=== PATIENT | female | born 1985 | race Caucasian/White ===

== ENCOUNTER 2021-01-28 17:39 | Emergency (ER) | payer MEDICAID, SELFPAY ==
[2021-01-28 17:49] VITALS: BP 147/93; PULSE 93; RESP 18; TEMP 37; BMI 38.9
--- NOTE | 2021-01-28 17:53 | PC.NURSE ---
pt is able to contract for safety to wait in waiting room. pt continues to denies si/hi or plan.
--- NOTE | 2021-01-28 18:39 | PC.NURSE ---
friend christiano [phone] requesting to be called when pt is settled and orientated in pod.
--- NOTE | 2021-01-28 18:52 | PC.NURSE ---
patient come in due to incresing depression, no clear SI HI but seems increasinbg dpression. since end of school year. no present PCP psychiatrist or therpist. reports daily etoh use up to six beers or malt beverages.sub par diet sub par sleep very anxious but not daily anxiety no history of psych hospitalzations LMP end of last week. contracts for safety denies etoh wd sx w absitnence
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
[2021-01-28 20:05] LABS: COVID-19 Test Negative (Negative)
== END 2021-01-28 20:50 | disposition home or self-care (01) ==
PROVIDERS: Physician Assistant; Emergency Provider Emergency Medicine
DX: F33.1 Major depressive disorder, recurrent, moderate (principal); F41.1 Generalized anxiety disorder; F43.0 Acute stress reaction; Z79.899 Other long term (current) drug therapy; Z20.822 Contact with and (suspected) exposure to COVID-19
CPT/HCPCS: 36415; 87635; 99283; 99284

== ENCOUNTER 2024-11-05 07:42 | Outpatient (AMB) | payer OTHER, SELFPAY ==
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
[2024-11-05 08:00] VITALS: BP 120/60; PULSE 90; TEMP 36.3; O2SAT 97; BMI 37.3
== END 2024-11-05 08:54 | disposition home or self-care (01) ==
DX: F33.1 Major depressive disorder, recurrent, moderate (principal); F41.9 Anxiety disorder, unspecified; E66.9 Obesity, unspecified; Z68.37 Body mass index [BMI] 37.0-37.9, adult; F43.10 Post-traumatic stress disorder, unspecified; F19.90 Other psychoactive substance use, unspecified, uncomplicated; F10.90 Alcohol use, unspecified, uncomplicated; F17.200 Nicotine dependence, unspecified, uncomplicated

== ENCOUNTER → 2024-11-05 07:42 | Outpatient (BNVA) | payer OTHER, SELFPAY | DX: F33.1 Major depressive disorder, recurrent, moderate (principal); F41.9 Anxiety disorder, unspecified; F43.10 Post-traumatic stress disorder, unspecified; F10.90 Alcohol use, unspecified, uncomplicated; E66.9 Obesity, unspecified; Z68.37 Body mass index [BMI] 37.0-37.9, adult; F11.90 Opioid use, unspecified, uncomplicated; F17.210 Nicotine dependence, cigarettes, uncomplicated | CPT/HCPCS: 96127; 99202 ==

== ENCOUNTER 2024-12-07 11:39 | Outpatient (REF) | payer OTHER, SELFPAY ==
[2024-12-07 12:55] LABS: MANUAL DIFF FLAG NO
[2024-12-07 13:12] LABS: Basophils Absolute Auto 0.1 X10*3/uL (0.0-0.2); Eosinophils Absolute Auto 0.6 X10*3/uL (0.0-0.4); Eosinophils Percent Auto 5.4 % (0-4); Hematocrit 37.1 % (37.0-47.0); Hemoglobin 12.2 g/dl (12.0-16.0); Imm Gran Abs Auto 0.04 X10*3/uL (0.00-0.03); Imm Gran Pct Auto 0.4 % (0.0-0.4); Lymphocytes Absolute Auto 3.2 X10*3/uL (1.2-4.9); Lymphocytes Percent Auto 30.1 % (20-40); Mean Corpuscular HGB Conc 32.9 g/dl (31.0-35.0); Mean Corpuscular Hemoglobin 27.3 pg (27.0-33.0); Mean Platelet Volume 8.3 fL (9.4-12.3); Monocytes Absolute Auto 0.7 X10*3/uL (0.1-1.2); Monocytes Percent Auto 6.4 % (2-11); Neutrophils Percent Auto 56.7 % (45-73); Platelet Count 330 X10*3/uL (160-400); Red Blood Count 4.47 X10*6/uL (4.20-5.50); Red Cell Distribution Width 13.6 % (11.0-16.0); White Blood Count 10.5 X10*3/uL (4.8-10.8)
[2024-12-07 13:47] LABS: Alanine Aminotransferase 28 U/L (0-31); Albumin Level 3.8 g/dL (3.5-5.0); Alkaline Phosphatase 58 U/L (39-117); Anion Gap 13 (12-20); Aspartate Amino Transferase 23 U/L (5-31); Bilirubin Total 0.2 mg/dL (0.0-1.0); Blood Urea Nitrogen 10 mg/dL (9-16); Calcium 8.6 mg/dL (8.4-10.2); Carbon Dioxide 26 mmol/L (22-29); Chloride 105 mmol/L (96-108); Cholesterol 203 mg/dL (<200); Estimated Glomerular Filt Rate > 60; Free T4 (Free Thyroxine) 1.09 ng/dL (0.71-1.85); Glucose Random 97 mg/dL (60-115); HDL Cholesterol 48 mg/dL (>40); LDL Cholesterol Calculated 135 mg/dL (<100); Potassium 4.7 mmol/L (3.3-5.1); Sodium 139 mmol/L (135-145); Total Protein 6.5 g/dL (6.5-8.0); Triglycerides 101 mg/dL (<150); Vitamin D 25-OH Total 24.8 ng/mL (>30)
[2024-12-07 14:01] LABS: Vitamin B12 257 pg/mL (200-900)
[2024-12-07 14:56] LABS: CT PCR NOT DETECTED (Not Detect.); NG PCR NOT DETECTED (Not Detect.)
== END 2024-12-07 11:40 | disposition home or self-care (01) ==
LOC: HO.HMGCLDS 11:39
DX: Z00.00 Encounter for general adult medical examination without abnormal findings (principal); Z11.3 Encounter for screening for infections with a predominantly sexual mode of transmission; F10.90 Alcohol use, unspecified, uncomplicated; F41.9 Anxiety disorder, unspecified; Z13.220 Encounter for screening for lipoid disorders; Z13.21 Encounter for screening for nutritional disorder; F19.90 Other psychoactive substance use, unspecified, uncomplicated
CPT/HCPCS: 80053; 80061; 82306; 82607; 82746; 84439; 84443; 85025; 87491; 87591

== ENCOUNTER 2024-12-08 10:15 | Outpatient (AMB) | payer OTHER, SELFPAY ==
--- NOTE | 2024-12-08 10:22 | A.OFFPC_ITS ---
Vital Signs 3 12/08/24 10:23 12/08/24 10:57 Height 5 ft 2.99 in Weight 217 lb 2 oz BMI 38.5 BP 140/66 H 108/70 Blood Pressure Location Lt brachial Lt brachial Position Sitting Sitting Pulse 97 Pulse Source Pulse Oximeter Temp 97.1 F Temp Source Temporal Artery Scan Pulse Oximetry (%) 96 Oxygen Delivery Method Room Air Intake Visit Reasons: f/u weight and lab work Intake Note: Patient is here to follow up on Weight check and lab results. 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 Required: No Sales And Merchandising Representative: Not Required per policy Accompanied by: Self / Same As Patient Allergies No Known Allergies Allergy (Verified 12/08/24 10:35) Medication List - Last Reconciled 12/08/24 by Kate Cortes PA-C acetaminophen (Tylenol) 325 mg PO QID PRN cetirizine 10 mg PO DAILY PRN hydroxyzine HCl 100 mg PO TID ibuprofen 400 mg PO Q8H PRN nicotine (polacrilex) 4 mg buccal Q2H tirzepatide (weight loss) (Zepbound) 2.5 mg (0.5 mL) subcut QWEEK trazodone 75 mg PO BEDTIME PRN Tobacco use date assessed: 12/08/24 Dental Screening Dental Screen Date: 11/05/24 HPI f/u weight and lab work 2 HPI0 Details 39-year-old female with past medical his tory of anxiety, depression, PTSD, substance and alcohol use disorder, tobacco use disorder last seen 10/2024 coming in for follow up. The patient has experienced sleep disturbances for three weeks, with frequent awakenings and resultant fatigue. Previous treatment with trazodone 100 mg was effective but caused residual drowsiness, and Lunesta was ineffective. She was recently restarted on trazodone 100 mg by her there psychiatrist. The patient has recurrent cysts in the axillary region, initially treated as ingrown hairs, requiring lancing and antibiotics. A new mass is palpable, indicating recurrence despite prior interventions. The patient reports recurrent folliculitis in shaved areas, presenting as small pus-filled lesions. Blood work revealed elevated LDL cholesterol at 135 mg/dL, with triglycerides at 101 mg/dL. [facility] Medical History delivery delivered Anxiety Depression Surgical History H/O tubal ligation History of delivery Family History Other Mental health disorder Substance use disorder Social History Housing: Other (Half way house) Alcohol intake: former Patient Tobacco Use Status: Current everyday Tobacco user Tobacco use type: Cigarette Cigarette Packs Per Day: 0.5 Cigarettes Per Day: 10 e-Cigarette/Vaping Use: Never Used Second Hand Smoke Exposure: Yes service: No Current occupational status: unemployed Cognitive needs: No Hearing needs: No Vision needs: No Questionnaire Thrive Questionnaire Date Thrive assessed: 11/05/24 I am a: Patient What is your living situation today?: I do not have a steady places to live I am temporarily staying with others Within the past 12 months, did the food you bought not last and you didn't have the money to get more?: Never true Within the past 12 months, did you worry whether your food would run out before you got money to buy more?: Never true Do you have trouble paying for medicines?: No Do you have trouble getting transportation to medical appointments?: No Do you have trouble paying your heating and electricity bill?: No Do you have trouble taking care of your child, family member or friend?: No Do you have trouble with day-to-day activities such as bathing, preparing meals, shopping, managing finances, etc.?: No Are you currently unemployed and looking for a job?: Yes Are you interested in more education?: No Please select the resources that you would like help with: None THRIVE Score: 1 DARREL-7 AMB Questionnaire DARREL-7 Date DARREL - 7 assessed: 11/05/24 Source: Developed by Drs. Pj Franklin, Elizabeth Plaza, Curt Frankel and colleagues, with an educational konstantin from [employer]. Review of Systems Const Denies body aches, Denies chills, Denies fever(s), Denies headache(s) and Denies poor appetite Eyes Reports no additional complaints ENT Denies dysphagia, Denies dizziness, Denies headache(s) and Denies odynophagia Card Denies chest pain, Denies syncope, Denies edema, Denies irregular heart rhythm, Denies lightheadedness and Denies dyspnea Resp Denies cough and Denies dyspnea GI Denies abdominal pain, Denies constipation, Denies dysphagia, Denies diarrhea, Denies nausea, Denies odynophagia and Denies vomiting Reports no additional complaints Musc Reports no additional complaints and Denies abnormal gait Skin/Breast Reports system reviewed and no additional complaints, except as documented Neuro Denies abnormal gait, Denies dizziness, Denies syncope and Denies headache(s) Psych Reports no additional complaints Physical exam (Primary Care) Vital Signs: Last Vital Signs Temp 97.1 F 12/08/24 10:23 Pulse 97 12/08/24 10:23 BP 140/66 H 12/08/24 10:23 Pulse Ox 96 12/08/24 10:23 Oxygen Delivery Method Room Air 12/08/24 10:23 BMI result Body Mass Index 38.5 Tobacco/Smoking Status: Tobacco use Status Tobacco use date assessed 12/08/24 12/08/24 10:25 Patient Tobacco Use Status Current everyday Tobacco 12/08/24 10:22 Tobacco use type Cigarette 12/08/24 10:22 e-Cigarette/Vaping Use Never Used 12/08/24 10:22 Thrive Assessment: Date of Thrive Assessment Date Thrive assessed 11/05/24 12/08/24 10:22 Const General: cooperative, healthy appearing, comfortable and no acute distress Orientation/consciousness: patient oriented x3 HENMT Head: Yes normocephalic Ears: hearing grossly normal bilaterally General nose exam: Normal external nose present Eyes General: appearance normal, both eyes and all related structures Conjunctivae: conjunctivae normal Neck Neck: Yes full ROM and Yes no lymphadenopathy Chest Chest/axillae images: 2 1. soft, nontender, mobile mass with smooth edges 2. soft, nontender, mobile mass with smooth edges Resp Effort & Inspection: normal respiratory effort Auscultation: clear to auscultation bilaterally, no crackles, no rales, no rhonchi and no wheezes Cardio Rate: regular rate Rhythm: regular rhythm Skin General skin exam: no rashes or lesions noted Neuro General: patient oriented x3 Gait exam (Neuro): Normal gait present Extrem General: Yes normal to inspection, Yes full ROM and No edema Psych Affect: normal affect Attitude: cooperative Insight: Good insight present (Psych) Judgement: Good judgement present (Psych) Coding Level of Care Code Est Pt Level 3 (00799) Diagnoses Obesity (BMI 30-39.9) E66.9 Axillary abscess L02.419 Hypercholesterolemia E78.00 Insomnia G47.00 Assessment & Plan Assessment & Plan (1) Obesity (BMI 30-39.9): Code(s): E66.9 - Obesity, unspecified Category: Medical Plan: Healthy diet and regular exercise is encouraged. Zepbound was recently approved by her insurance and she plans to start on this medication as soon as the pharmacy has it available. (2) Axillary abscess: Code(s): L02.419 - Cutaneous abscess of limb, unspecified Category: Medical Plan: Patient has recurrent abscess of the left axilla in 2 small palpable masses likely cysts under the skin. Recommend General surgery evaluation as recurrent drainage is causing discomfort (3) Hypercholesterolemia: Code(s): E78.00 - Pure hypercholesterolemia, unspecified Category: Medical Plan: Avoid foods that are high in cholesterol such as red meat, fried foods, eggs and baked goods. Triglyceride goal of less than 150 and LDL goal of less than 130. Last LDL mildly above goal at 135 recommend dietary and lifestyle modification and repeat labs in 3 months. (4) Insomnia: Code(s): G47.00 - Insomnia, unspecified Category: Medical Plan: Recently restarted on trazodone by her psychiatrist. Plan The patient will continue trazodone 100 mg for insomnia, with monitoring of sleep patterns and potential medication adjustments as needed. Referral to general surgery is advised for sebaceous cyst excision due to recurrent issues. Proper shaving techniques and post-shave care are recommended to manage folliculitis, with further evaluation if necessary. The patient remains in remission from alcohol use disorder and will maintain follow-up at [facility] for Vivitrol management. Hyperlipidemia will be monitored with dietary and lifestyle changes, and follow-up blood work is scheduled every three months. This note was constructed using voice recognition software. While every effort has been made to ensure accuracy and fibre optics jointer, still areas may have been included sometimes these areas may affect the content or meeting of the given symptoms. Total time spent caring for the patient today was 20 minutes. This includes time spent before the visit reviewing the chart, time spent during the visit, and time spent after the visit and documentation. Patient was informed and verbally consented to the use of an ambient scribe for clinic note documentation during this visit. Orders: Orders 2 Comprehensive Met. Panel 3 Months E66.9 - Obesity, unspecified, Z00.00 - Encounter for general adult medical examination without abnormal findings Lipid Panel 3 Months E78.00 - Pure hypercholesterolemia, unspecified Referrals 2 General Surgery Referral L02.419 - Cutaneous abscess of limb, unspecified Medications: Changed 2 From trazodone 75 mg PO BEDTIME PRN To trazodone 100 mg PO BEDTIME PRN Refilled 2 cetirizine 10 mg PO DAILY PRN 90 tabs 1RF allergy symptoms ibuprofen 400 mg PO Q8H PRN 90 tabs 1RF pain nicotine (polacrilex) cinnamon 4 mg buccal Q2H 100 ea 2RF
[2024-12-08 10:23] VITALS: BP 140/66; PULSE 97; TEMP 36.2; O2SAT 96; BMI 38.5
[2024-12-08 10:57] VITALS: BP 108/70
== END 2024-12-08 11:04 | disposition home or self-care (01) ==
LOC: HO.HMCH 10:16
DX: E78.00 Pure hypercholesterolemia, unspecified (principal); E66.9 Obesity, unspecified; Z68.38 Body mass index [BMI] 38.0-38.9, adult; L02.419 Cutaneous abscess of limb, unspecified; G47.00 Insomnia, unspecified

== ENCOUNTER → 2024-12-08 10:15 | Outpatient (BNVA) | payer OTHER, SELFPAY | DX: F41.9 Anxiety disorder, unspecified (principal); F32.A Depression, unspecified; F43.10 Post-traumatic stress disorder, unspecified; E66.9 Obesity, unspecified; L02.419 Cutaneous abscess of limb, unspecified; G47.00 Insomnia, unspecified; E78.00 Pure hypercholesterolemia, unspecified | CPT/HCPCS: 99212 ==

== ENCOUNTER 2024-12-20 09:05 | Outpatient (AMB) | payer OTHER, SELFPAY ==
[2024-12-20 09:24] VITALS: BP 110/68; PULSE 100; TEMP 36.8; O2SAT 96; BMI 37.6
--- NOTE | 2024-12-20 09:24 | AM.OFFWIN_ITS ---
Intake Vital Signs 3 12/20/24 09:24 Height 5 ft 3 in Weight 212 lb 4 oz BMI 37.6 BP 110/68 Blood Pressure Location Rt brachial Position Sitting Pulse 100 Pulse Source Pulse Oximeter Temp 98.3 F Temp Source Oral Pulse Oximetry (%) 96 Oxygen Delivery Method Room Air Intake Visit Reasons: EP Cysts in lt armpit Intake Note: Patient presents with a cyst under left armpit times 3 months Patient Tobacco Use Status: Current everyday Tobacco user Trailer Driver Required: No Allergies No Known Allergies Allergy (Verified 12/20/24 09:28) Do you need a note to return to daycare/school/sports/work: No HPI HPI Comments 2 History of Present Illness0 Details 39 y/o Female patient who presents to [facility] walk in clinic with c/o recurrent cysts left Armpit that are painful. Reports seeing General surgery in the past for Surgical drainage - currently has an appointment with them in January. [facility] Medical History delivery delivered Anxiety Depression Surgical History H/O tubal ligation History of delivery Family History Other Mental health disorder Substance use disorder Social History Housing: Other (Half way house) Alcohol intake: former Patient Tobacco Use Status: Current everyday Tobacco user Tobacco use type: Cigarette Cigarette Packs Per Day: 0.5 Cigarettes Per Day: 10 e-Cigarette/Vaping Use: Never Used Second Hand Smoke Exposure: Yes service: No Current occupational status: unemployed Cognitive needs: No Hearing needs: No Vision needs: No Review of Systems Const All systems reviewed & are unremarkable except as noted in HPI and below Physical Exam Vital Signs: Last Vital Signs Temp 98.3 F 12/20/24 09:24 Pulse 100 12/20/24 09:24 BP 110/68 12/20/24 09:24 Pulse Ox 96 12/20/24 09:24 Oxygen Delivery Method Room Air 12/20/24 09:24 BMI result Body Mass Index 37.6 Const General: no acute distress Nutritional Appearance: obese Orientation/consciousness: patient oriented x3 Chest Chest/axillae images: 2 1. Left Armpit with two Areas on indurated skin, Erythematous and TTP. Dry no drainage present. Skin Other: Left Armpit with two Areas on indurated skin, Erythematous and TTP. Dry no drainage present. Lesions: lesion noted Neuro General: patient oriented x3 Psych Speech and movement: Normal speech and movement present Assessment & Plan Assessment & Plan (1) Axillary abscess: Code(s): L02.419 - Cutaneous abscess of limb, unspecified Plan: Advised Warm compress to promote drainage. NSAIDs for pain relief Ordered Topical Abx F/U with General Surgery. Medications: New 2 mupirocin 2% 1 appl topical BID 10 days 15 grams 0RF L02.419 - Cutaneous abscess of limb, unspecified mupirocin 2% 1 appl topical BID 15 grams 0RF 10 days L02.419 - Cutaneous abscess of limb, unspecified Coding Level of Care Code Est Pt Level 4 (83663) Diagnoses Axillary abscess L02.419 Time Spent (min) 20
== END 2024-12-20 10:35 | disposition home or self-care (01) ==
PROVIDERS: Visit Provider Nurse Practitioner Family
DX: L02.419 Cutaneous abscess of limb, unspecified (principal)

== ENCOUNTER → 2024-12-20 09:05 | Outpatient (BNVA) | payer OTHER, SELFPAY | PROVIDERS: Visit Provider Nurse Practitioner Family | DX: L02.412 Cutaneous abscess of left axilla (principal) | CPT/HCPCS: 99212 ==

== ENCOUNTER 2025-01-18 13:20 | Outpatient (AMB) | payer OTHER, SELFPAY ==
--- NOTE | 2025-01-18 13:25 | MHC.OFFVIS ---
Vital Signs 01/18/25 13:37 Height 5 ft 3 in Weight 201 lb 4 oz BMI 35.6 BP 118/65 Blood Pressure Location Lt brachial Position Sitting Pulse 100 Intake Visit Reasons: Cutaneous abscess of limb Intake Note: Patient is seen in office for evaluation of an abscess of the left axilla. Pt c/o: gets abscess in the groin and axilla when shaving, been using creams with relief, went to urgent care in 08/2024 and was drained, was on antibiotics, currently abscess is not flare up Cytology Teacher Required: No Accompanied by: Self / Same As Patient Allergies No Known Allergies Allergy (Verified 01/18/25 13:39) Medication List - Last Reconciled 01/19/25 by Edilson Hussein MD acetaminophen (Tylenol) 325 mg PO QID PRN cetirizine 10 mg PO DAILY PRN chlorhexidine gluconate 4% (Hibiclens) 1 appl topically 3 times weekly; lather in shower and leave on for 1 minute before rinsing 2 doses clonidine HCl 0.1 mg PO TID cyclobenzaprine 5 mg PO TID PRN hydroxyzine HCl 100 mg PO TID ibuprofen 400 mg PO Q8H PRN mupirocin 2% 1 appl topical BID 10 days naltrexone microspheres ER (Vivitrol) mg IM nicotine (polacrilex) 4 mg buccal Q2H tirzepatide (weight loss) 5 mg (0.5 mL) subcut QWEEK trazodone 100 mg PO BEDTIME PRN HPI Comments Details: 39-year-old female patient presenting for evaluation of a recent abscess of the left axilla. She reports several episodes of recurring infections of both the axilla and groin the most recent of which occurred in the left axilla which required incision and drainage. Subsequently placed on oral antibiotics and provided a topical cream (mupirocin). She reports that the cream helped reduce the size symptoms of the cyst. Similar lesions were noted in the left groin as well. She reports that she stopped shaving in the pubis because of the recurring infections. Currently the lesions are resolved with no further pain, redness or discharge. She denies any fever or chills. [facility] Medical History delivery delivered Anxiety Depression Surgical History H/O tubal ligation History of delivery Family History Other Mental health disorder Substance use disorder Social History Housing: Other (Half way house) Alcohol intake: former Patient Tobacco Use Status: Current everyday Tobacco user Tobacco use type: Cigarette Cigarette Packs Per Day: 0.5 Cigarettes Per Day: 10 e-Cigarette/Vaping Use: Never Used Second Hand Smoke Exposure: Yes service: No Current occupational status: unemployed Cognitive needs: No Hearing needs: No Vision needs: No Review of Systems Const All systems reviewed & are unremarkable except as noted in HPI and below Physical Exam Vital Signs: Last Vital Signs Pulse 100 01/18/25 13:37 BP 118/65 01/18/25 13:37 BMI result Body Mass Index 35.6 Const General: cooperative and no acute distress Nutritional Appearance: well nourished Orientation/consciousness: patient oriented x3 Limitations: no limitations HEENT Head: Yes normocephalic and Yes atraumatic Ears: hearing grossly normal bilaterally Chest Other: Left axilla with some residual scar tissue in the left axilla with no evidence of acute infection and no tenderness to palpation. Findings are suggestive of hidradenitis which has resolved. Resp Effort & Inspection: normal respiratory effort, no audible wheezes, no cough and no respiratory distress Cardio Jugular venous distension: no JVD GI Other: Examination of the pubic skin in the left side does reveal some mild hidradenitis with no active infection. No tenderness to palpation. Inspection: Yes normal to inspection Skin Other: Warm, dry, no rash Neuro General: patient oriented x3 Extrem General: Yes no clubbing, cyanosis or edema Assessment & Plan Assessment & Plan (1) Axillary abscess: Code(s): L02.419 - Cutaneous abscess of limb, unspecified Category: Medical Plan 39-year-old female patient presenting with left axillary and left groin infections which have now resolved after applying mupirocin cream. On examination the findings are suggestive of hidradenitis possibly due to a MRSA skin infection. Currently the infection is resolved with no active abscess. I recommended using chlorhexidine scrub at least 2-3 times weekly to help reduce the chances of recurrence of this infection. She should follow up as needed. Medications: New chlorhexidine gluconate 4% (Hibiclens) 1 appl topically 3 times weekly; lather in shower and leave on for 1 minute before rinsing 473 mL 4RF 2 doses Coding Level of Care Code New Pt Level 4 (26257) Diagnoses Axillary abscess L02.419
[2025-01-18 13:37] VITALS: BP 118/65; PULSE 100; BMI 35.6
== END 2025-01-18 14:31 | disposition home or self-care (01) ==
LOC: HO.HGS 13:21
PROVIDERS: Visit Provider Surgery
DX: L02.419 Cutaneous abscess of limb, unspecified (principal)
CPT/HCPCS: 99204

== ENCOUNTER → 2025-01-18 13:20 | Outpatient (BNVA) | payer OTHER, SELFPAY | PROVIDERS: Visit Provider Surgery | DX: L02.412 Cutaneous abscess of left axilla (principal) | CPT/HCPCS: 99202 ==

== ENCOUNTER 2025-03-02 09:49 | Outpatient (REF) | payer OTHER, SELFPAY ==
[2025-03-02 14:06] LABS: Alanine Aminotransferase 23 U/L (0-31); Albumin Level 4.0 g/dL (3.5-5.0); Alkaline Phosphatase 54 U/L (39-117); Anion Gap 10 (12-20); Aspartate Amino Transferase 24 U/L (5-31); Blood Urea Nitrogen 11 mg/dL (9-16); Calcium 8.7 mg/dL (8.4-10.2); Carbon Dioxide 26 mmol/L (22-29); Chloride 107 mmol/L (96-108); Cholesterol 232 mg/dL (<200); Estimated Glomerular Filt Rate 47; HDL Cholesterol 37 mg/dL (>40); Potassium 3.8 mmol/L (3.3-5.1); Sodium 139 mmol/L (135-145); Total Protein 6.5 g/dL (6.5-8.0); Triglycerides 138 mg/dL (<150)
== END 2025-03-02 09:50 | disposition home or self-care (01) ==
LOC: HO.HMGCLDS 09:49
DX: Z00.00 Encounter for general adult medical examination without abnormal findings (principal); E66.9 Obesity, unspecified; E78.00 Pure hypercholesterolemia, unspecified
CPT/HCPCS: 36415; 80053; 80061

== ENCOUNTER 2025-03-10 10:47 | Outpatient (AMB) | payer OTHER, SELFPAY ==
[2025-03-10 10:51] VITALS: BP 110/78; PULSE 72; TEMP 36.2; O2SAT 99; BMI 33.0
--- NOTE | 2025-03-10 10:51 | MHC.PC.OV ---
Vital Signs 03/10/25 10:51 Height 5 ft 3 in Weight 186 lb 4 oz BMI 33.0 BP 110/78 Blood Pressure Location Lt brachial Position Sitting Pulse 72 Pulse Source Pulse Oximeter Temp 97.1 F Temp Source Temporal Artery Scan Pulse Oximetry (%) 99 Oxygen Delivery Method Room Air Intake Visit Reasons: f/u weight and HLD Allergies No Known Allergies Allergy (Verified 03/10/25 11:31) Medication List - Last Reconciled 03/10/25 by Kate Cortes PA-C acetaminophen (Tylenol) 325 mg PO QID PRN cetirizine 10 mg PO DAILY PRN chlorhexidine gluconate 4% (Hibiclens) 1 appl topically 3 times weekly; lather in shower and leave on for 1 minute before rinsing 2 doses clonidine HCl 0.1 mg PO TID cyclobenzaprine 5 mg PO TID PRN hydroxyzine HCl 100 mg PO TID ibuprofen 400 mg PO Q8H PRN mupirocin 2% 1 appl topical BID 10 days naltrexone microspheres ER (Vivitrol) mg IM nicotine (polacrilex) 4 mg buccal Q2H tirzepatide (weight loss) (Zepbound) 10 mg (0.5 mL) subcut QWEEK trazodone 100 mg PO BEDTIME PRN Tobacco use date assessed: 03/10/25 Dental Screening Dental Screen Date: 03/10/25 Did you have a dental visit in the last 12 months?: Yes Did you have a dental problem in the last 6 months where you did not have access to dental care?: No Was dental information given to patient?: Patient has dentist HPI f/u weight and HLD HPI Details 39-year-old female with a past medical history of anxiety, depression, PTSD, substance and alcohol use disorder, tobacco use disorder last seen 12/08 coming in for follow up.? In review of the notes, patient was seen by General surgery 01/19/2025 recommended the use of chlorhexidine 2-3 times per week to prevent infection. Presenting with weight management concerns. She has been on Zepbound for 3.5 months, resulting in a weight loss of 31 pounds, with minimal side effects. Regular exercise includes walking, hand weights, and yoga, and she practices meal prepping. Hypercholesterolemia was noted, with dietary advice to reduce steak intake. Hidradenitis suppurativa is managed without surgery, using body wash as a preventative measure. Insomnia is managed with trazodone and Zolpidem, with adjustments due to drowsiness, and improved by reduced stress from a new job. [facility] Medical History delivery delivered Anxiety Depression Surgical History H/O tubal ligation History of delivery Family History Other Mental health disorder Substance use disorder Social History Housing: Other (Half way house) Alcohol intake: former Patient Tobacco Use Status: Current everyday Tobacco user Tobacco use type: Cigarette Cigarette Packs Per Day: 0.5 Cigarettes Per Day: 10 e-Cigarette/Vaping Use: Never Used Second Hand Smoke Exposure: Yes service: No Current occupational status: unemployed Cognitive needs: No Hearing needs: No Vision needs: No Questionnaire PHQ-9 Over the last 2 weeks, how often have you been bothered by any of the following problems? 1. Little interest or pleasure in doing things: not at all 2. Feeling down, depressed, or hopeless: several days 3. Trouble falling or staying asleep, or sleeping too much: several days 4. Feeling tired or having little energy: several days 5. Poor appetite or overeating: not at all 6. Feeling bad about yourself - or that you are a failure or have let yourself or your family down: not at all 7. Trouble concentrating on things, such as reading the newspaper or watching television: not at all 8. Moving or speaking so slowly that other people could have noticed. Or the opposite - being so fidgety or restless that you have been moving around a lot more than usual: not at all 9. Thoughts that you would be better off or of hurting yourself in some way: not at all Total score: 3 Depression Screening Interpretation: Positive Depression Screening Follow-up: Existing condition Depression Screening Done: Yes Source: Developed by Drs. Pj Franklin, Curt West and colleagues, with an educational konstantin from [employer]. Thrive Questionnaire Date Thrive assessed: 11/05/24 I am a: Patient What is your living situation today?: I do not have a steady places to live I am temporarily staying with others Within the past 12 months, did the food you bought not last and you didn't have the money to get more?: Never true Within the past 12 months, did you worry whether your food would run out before you got money to buy more?: Never true Do you have trouble paying for medicines?: No Do you have trouble getting transportation to medical appointments?: No Do you have trouble paying your heating and electricity bill?: No Do you have trouble taking care of your child, family member or friend?: No Do you have trouble with day-to-day activities such as bathing, preparing meals, shopping, managing finances, etc.?: No Are you currently unemployed and looking for a job?: Yes Are you interested in more education?: No Please select the resources that you would like help with: None THRIVE Score: 1 AUDIT C Alcohol Use Questionnaire (AUDIT-C) 1. How often do you have a drink containing alcohol?: Never 3. How often do you have six or more drinks on one occasion?: Never Total Score: 0 DARREL-7 AMB Questionnaire DARREL-7 Date DARREL - 7 assessed: 11/05/24 Feeling nervous, anxious, or on edge: 1 = Several days Not being able to stop or control worryin = Several days Worrying too much about different things: 1 = Several days Trouble relaxin = Not at all Being so restless that it is hard to sit still: 0 = Not at all Becoming easily annoyed or irritable: 1 = Several days Feeling afraid as if something awful might happen: 0 = Not at all Total DARREL-7 score (0-4 normal; 5-9 mild; 10-14 moderate; 15-21 severe): 4 Source: Developed by Drs. Pj Franklin, Curt West and colleagues, with an educational konstantin from [employer]. Review of Systems Const Denies body aches, Denies chills, Denies fever(s), Denies headache(s) and Denies poor appetite Eyes Reports no additional complaints ENT Denies dysphagia, Denies dizziness, Denies headache(s) and Denies odynophagia Card Denies chest pain, Denies syncope, Denies edema, Denies irregular heart rhythm, Denies lightheadedness and Denies dyspnea Resp Denies cough and Denies dyspnea GI Denies abdominal pain, Denies constipation, Denies dysphagia, Denies diarrhea, Denies nausea, Denies odynophagia and Denies vomiting Reports no additional complaints Musc Reports no additional complaints and Denies abnormal gait Skin/Breast Reports system reviewed and no additional complaints, except as documented Neuro Denies abnormal gait, Denies dizziness, Denies syncope and Denies headache(s) Psych Reports no additional complaints Physical exam (Primary Care) Vital Signs: Last Vital Signs Temp 97.1 F 03/10/25 10:51 Pulse 72 03/10/25 10:51 BP 110/78 03/10/25 10:51 Pulse Ox 99 03/10/25 10:51 Oxygen Delivery Method Room Air 03/10/25 10:51 BMI result Body Mass Index 33.0 Tobacco/Smoking Status: Tobacco use Status Tobacco use date assessed 03/10/25 03/10/25 10:55 Patient Tobacco Use Status Current everyday Tobacco 03/10/25 10:55 Tobacco use type Cigarette 03/10/25 10:55 e-Cigarette/Vaping Use Never Used 03/10/25 10:55 PHQ-9: PHQ-9 Score PHQ-9: Total score 3 03/10/25 10:55 Depression Screening Interpretation: Positive Depression Screening Follow-up: Existing condition Thrive Assessment: Date of Thrive Assessment Date Thrive assessed 11/05/24 03/10/25 10:55 Const General: cooperative, healthy appearing, comfortable and no acute distress Orientation/consciousness: patient oriented x3 HENMT Head: Yes normocephalic Ears: hearing grossly normal bilaterally General nose exam: Normal external nose present Eyes General: appearance normal, both eyes and all related structures Conjunctivae: conjunctivae normal Neck Neck: Yes full ROM and Yes no lymphadenopathy Resp Effort & Inspection: normal respiratory effort Auscultation: clear to auscultation bilaterally, no crackles, no rales, no rhonchi and no wheezes Cardio Rate: regular rate Rhythm: regular rhythm Skin General skin exam: no rashes or lesions noted Neuro General: patient oriented x3 Gait exam (Neuro): Normal gait present Extrem General: Yes normal to inspection, Yes full ROM and No edema Psych Affect: normal affect Attitude: cooperative Insight: Good insight present (Psych) Judgement: Good judgement present (Psych) Coding Level of Care Code Est Pt Level 3 (50401) Diagnoses Obesity (BMI 30-39.9) E66.9 Axillary abscess L02.419 Hypercholesterolemia E78.00 Insomnia G47.00 Assessment & Plan Assessment & Plan (1) Obesity (BMI 30-39.9): Code(s): E66.9 - Obesity, unspecified Category: Medical Plan: Healthy diet and regular exercise is encouraged. Noted 31 lb weight loss since last visit. Continue on Zepbound and will continue to increase the dose. (2) Axillary abscess: Code(s): L02.419 - Cutaneous abscess of limb, unspecified Category: Medical Plan: Patient has recurrent abscess of the left axilla in 2 small palpable masses likely cysts under the skin. General surgery recommended hibiclens 3x per week and has not had any recurrance at this time. (3) Hypercholesterolemia: Code(s): E78.00 - Pure hypercholesterolemia, unspecified Category: Medical Plan: Avoid foods that are high in cholesterol such as red meat, fried foods, eggs and baked goods. Triglyceride goal of less than 150 and LDL goal of less than 130. Last LDL increased to 160 likely due to change in dietary habits. Discussed lifestyle modification and plan to follow up in 3 months with repeat labs. (4) Insomnia: Code(s): G47.00 - Insomnia, unspecified Category: Medical Plan: She has been using Trazodone and Ambien as prescribed by her psychiatrist. She has been having increased grogginess in the morning. Recommend her follow up with her psych regarding adjustments. Plan During the visit, we discussed the patient's progress with weight loss on Zepbound and the need to adjust the dosage as necessary. We also reviewed the increase in cholesterol levels and dietary changes to address this. The management of hidradenitis suppurativa with body wash was confirmed, and the patient was advised to contact the surgeon if symptoms recur. Insomnia management was discussed, with a plan to consult the psychiatrist for medication adjustments if needed. Follow-up appointments and repeat testing were scheduled to monitor progress. This note was constructed using voice recognition software. 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 Total time spent caring for the patient today was 20 minutes. This includes time spent before the visit reviewing the chart, time spent during the visit, and time spent after the visit and documentation. Patient was informed and verbally consented to the use of an ambient scribe for clinic note documentation during this visit. Orders: Orders Lipid Panel 3 Months E78.00 - Pure hypercholesterolemia, unspecified Medications: New tirzepatide (weight loss) (Zepbound) 12.5 mg (0.5 mL) subcut QWEEK 2 mL 0RF Discontinued tirzepatide (weight loss) (Zepbound) Discontinued Reason: Patient no longer taking 10 mg (0.5 mL) subcut QWEEK 2 mL 0RF
== END 2025-03-10 11:48 | disposition home or self-care (01) ==
LOC: HO.HMCH 10:48
DX: E78.00 Pure hypercholesterolemia, unspecified (principal); E66.9 Obesity, unspecified; Z68.33 Body mass index [BMI] 33.0-33.9, adult; L02.419 Cutaneous abscess of limb, unspecified; G47.00 Insomnia, unspecified

== ENCOUNTER → 2025-03-10 10:47 | Outpatient (BNVA) | payer OTHER, SELFPAY | DX: E66.9 Obesity, unspecified (principal); Z68.33 Body mass index [BMI] 33.0-33.9, adult; L02.412 Cutaneous abscess of left axilla; E78.00 Pure hypercholesterolemia, unspecified; G47.00 Insomnia, unspecified; Z13.31 Encounter for screening for depression | CPT/HCPCS: 99212 ==